=== PATIENT | female | born 1985 | race Two or more races ===

== ENCOUNTER 2019-03-10 12:05 | Observation (INO) | payer MEDICAID, OTHER ==
[2019-03-10] MEDS ORDERED: PREN-96 PO (12:40)
== END 2019-03-10 12:47 | disposition home or self-care (01) | DRG 566 ==
LOC: LDRP 12:05
PROVIDERS: ADMIT Specialist; ATTEND Specialist
DX: O62.9 Abnormality of forces of labor, unspecified (principal); O09.523 Supervision of elderly multigravida, third trimester; Z3A.31 31 weeks gestation of pregnancy
CPT/HCPCS: 59025; 81002; G0378

== ENCOUNTER 2021-12-19 20:32 | Emergency (ER) | payer MEDICAID ==
[~2021-12-19] VITALS: Ht 157.5 cm; Wt 59.0 kg
[~2021-12-19 20:32] MED LIST: PREN-96 PO
[2021-12-19] MEDS ORDERED: IBUPROFEN 800 MG TAB PO ONE (22:45)
[2021-12-19] MEDS ORDERED: IBUP800T27 PO (22:53)
[2021-12-19] MEDS ORDERED: DICL1GEL50 TD (22:54)
[2021-12-19 22:56] VITALS: BP 140/62
== END 2021-12-20 00:10 | disposition home or self-care (01) ==
LOC: ER 20:46
DX: S93.402A Sprain of unspecified ligament of left ankle, initial encounter (principal); X50.1XXA Overexertion from prolonged static or awkward postures, initial encounter; Y93.89 Activity, other specified; Y92.89 Other specified places as the place of occurrence of the external cause; Y99.8 Other external cause status
CPT/HCPCS: 73610

== ENCOUNTER 2022-06-15 20:47 | Emergency (ER) | payer MEDICAID ==
[~2022-06-15] VITALS: Ht 157.5 cm; Wt 64.0 kg
[~2022-06-15 20:47] MED LIST changes: +DICL1GEL50 TD; +IBUP800T27 PO
[2022-06-15 22:06] LABS: Basophils # (auto) 0.1 10 ^3/uL (0-0.2); Basophils % (auto) 0.8 % (0.0-2.0); Eosinophils # (auto) 0.8 10 ^3/uL (0-0.8); Eosinophils % (auto) 7.3 % (0.0-7.0); Hematocrit 41.8 % (36.0-46.0); Hemoglobin 14.2 g/dL (12.2-16.2); Lymphocytes % (auto) 27.7 % (10.0-50.0); Mean Corpuscular Hemoglobin 30.2 pg (28.0-32.0); Mean Corpuscular Volume 88.8 fL (80.0-100.0); Monocytes # (auto) 0.4 10 ^3/uL (0-1.3); Monocytes % (auto) 4.1 % (0.0-12.0); Neutrophils # (auto) 6.4 10 ^3/uL (1.6-8.6); Neutrophils % (auto) 60.1 % (37.0-80.0); Nucleated Red Blood Cells % 0.1 %; Red Blood Cells 4.71 10^6/uL (4.0-5.20); Red Cell Distribution Width 12.8 % (11.8-14.3); White Blood Cell 10.7 10^3/uL (4.4-10.8)
[2022-06-15 22:23] LABS: Albumin 3.6 g/dL (3.4-5.0); Calcium 9.1 mg/dL (8.5-10.1); Potassium 3.6 mmol/L (3.5-5.1)
[2022-06-15 22:27] LABS: BUN/Creatinine Ratio 16.4 (10.0-20.0); Bilirubin, Total 0.3 mg/dL (0.2-1.0); Total Protein 7.4 g/dL (6.4-8.2)
[2022-06-15 22:28] LABS: INR 0.91 (0.9-1.15); Partial Thromboplastin Time 26.5 sec (24.6-33.4)
[2022-06-16] MEDS ORDERED: ALBUTEROL SULF 2.5 MG/0.5ML(0.5%) NEB SOLN NEB ONE
[2022-06-16] MEDS ORDERED: IPRATROPIUM BROM 0.5 MG/2.5ML INH SOL NEB ONE
[2022-06-16] MEDS ORDERED: PROM1SOL4 PO (00:04)
[2022-06-16] MEDS ORDERED: MONT-8 PO (00:04)
[2022-06-16] MEDS ORDERED: ALBU108A5 IN (00:04)
[2022-06-16 00:30] VITALS: BP 130/76
== END 2022-06-16 00:41 | disposition home or self-care (01) ==
LOC: ER 20:47
DX: J06.9 Acute upper respiratory infection, unspecified (principal); R05.9 Cough, unspecified
CPT/HCPCS: 36415; 71045; 80053; 83880; 84484; 85025; 85610; 85730; 93005; 94640; 99285; J7644